=== PATIENT | female | born 1960 | race African-American/Black ===

== ENCOUNTER 2018-01-11 10:18 | Emergency (ER) | payer SELFPAY ==
[~2018-01-11] VITALS: Ht 160 cm; Wt 82.3 kg
[2018-01-11] MEDS ORDERED: IBUPROFEN 800MG TABLET PO ONE (13:45)
[2018-01-11 15:00] VITALS: BP 172/71
== END 2018-01-11 15:01 | disposition home or self-care (01) ==
LOC: ER 10:38
DX: S90.31XA Contusion of right foot, initial encounter (principal); I10 Essential (primary) hypertension; F32.9 Major depressive disorder, single episode, unspecified; E11.9 Type 2 diabetes mellitus without complications; Z88.8 Allergy status to other drugs, medicaments and biological substances; W01.0XXA Fall on same level from slipping, tripping and stumbling without subsequent striking against object, initial encounter; Y93.89 Activity, other specified; Y92.89 Other specified places as the place of occurrence of the external cause
CPT/HCPCS: 73030; 73610; 73630; 99284

== ENCOUNTER 2018-11-25 11:10 | Inpatient (IN) | payer MEDICARE ==
[~2018-11-25] VITALS: Ht 160 cm; Wt 83.9 kg
[2018-11-25] MEDS ORDERED: SODIUM CHLORIDE 0.9% 1,000 ML IV ONE (11:46)
[2018-11-25] MEDS ORDERED: ONDANSETRON HCL 4MG/2ML INJ IV STA (11:46)
[2018-11-25] MEDS ORDERED: ACETAMINOPHEN 325MG TABLET PO ONE (12:00)
[2018-11-25 12:09] LABS: BG BASE EXCESS -1.8 mmol/L (-2.0-2.0); BG CARBOXYHEMOGLOBIN 0.2 % (0.5-1.5); BG DEOXYHEMOGLOBIN 4.3 % (0.0-5.0); BG HCO3 ACT 22.5 mmol/L (22.0-26.0); BG METHEMOGLOBIN 0.1 % (0.0-1.5); BG OXYGEN SATURATION 95.7 % (92.0-98.5); BG OXYHEMOGLOBIN 95.4 % (94.0-97.0); BG PCO2 37.1 mmHg (35.0-45.0); BG PH 7.401 (7.350-7.450); BG PO2 82.8 mmHg (75.0-100.0); BG SAMPLE SITE RIGHT BRACHIAL; BG TOTAL HEMOGLOBIN 13.9 g/dL (12.0-18.0); BG VENT MODE ROOM AIR
[2018-11-25 12:17] LABS: BASOPHILS % 0.6 % (0.0-2.0); CHLORIDE 98 mEq/L (98-107); EOSINOPHILS % 0.9 % (0.0-5.0); HEMATOCRIT. 39.3 % (36.0-48.0); HEMOGLOBIN. 13.4 g/dL (12.0-16.0); LYMPHOCYTES % 27.4 % (20.0-50.0); MEAN CORPUSCULAR HEMOGLOBIN 29.9 pg (28.0-32.0); MEAN CORPUSCULAR VOLUME 87.5 fL (81.0-99.0); MEAN PLATELET VOLUME 9.4 fl (7.4-10.4); MONOCYTES % 6.8 % (2.0-8.0); NEUTROPHILS % 64.3 % (40.0-76.0); PLATELET 295 x1000/uL (130-400); RED BLOOD CELL COUNT 4.49 mill/uL (4.2-5.4); RED CELL DISTRIBUTION WIDTH 12.4 % (11.6-14.6)
[2018-11-25 14:08] LABS: CLARITY URINE CLEAR (CLEAR); COLOR URINE YELLOW (YELLOW); KETONES URINE NEGATIVE (NEGATIVE); LEUKOCYTE ESTERASE URINE NEGATIVE (NEGATIVE); NITRITE URINE NEGATIVE (NEGATIVE); OCCULT BLOOD URINE NEGATIVE (NEGATIVE); PROTEIN URINE NEGATIVE (NEGATIVE); UROBILINOGEN URINE 0.2 E.U./dL (0.2-1.0)
[2018-11-25] MEDS ORDERED: ASPIRIN 325MG EC TABLET PO ONE (16:00)
[2018-11-25 17:25] VITALS: BP 137/77
[2018-11-25] MEDS ORDERED: METF-815 PO (18:07)
[2018-11-25] MEDS ORDERED: RANI150T7 PO (18:07)
[2018-11-25] MEDS ORDERED: GLIM4TAB2 PO (18:07)
[2018-11-25] MEDS ORDERED: TRIA1TAB92 MT (18:07)
[2018-11-25] MEDS ORDERED: CLONIDINE 0.1MG TABLET PO PRN (18:15)
[2018-11-25] MEDS ORDERED: ONDANSETRON HCL 4MG/2ML INJ IV PRN (18:15)
[2018-11-25] MEDS ORDERED: GUAIFENESIN 200MG/10ML SUGAR FREE UDC PO PRN (18:15)
[2018-11-25] MEDS ORDERED: IPRATROPIUM/ALBUTEROL 0.5-3(2.5)MG/3ML NEB INH PRN (18:15)
[2018-11-25] MEDS ORDERED: DOCUSATE SODIUM 100MG CAPSULE PO PRN (18:15)
[2018-11-25] MEDS ORDERED: MAGNESIUM/ALUMINUM HYDROXIDE/SIMETHICONE 30ML UDC PO PRN (18:15)
[2018-11-25] MEDS ORDERED: ACETAMINOPHEN 325MG TABLET PO PRN (18:15)
[2018-11-25] MEDS ORDERED: DEXTROSE 50% WATER 50ML SYRINGE IV PRN (18:30)
[2018-11-25] MEDS ORDERED: MORPHINE SULFATE 2 MG/ML CPJ (NOT FOR IM USE) IV PRN (18:39)
[2018-11-25] MEDS: INSULIN LISPRO 100 UNITS/ML SUBCUT SCH ×2 (18:59→21:16)
[2018-11-25] MEDS: BLOOD SUGAR DIAGNOSTIC STRIP TEST SCH ×2 (18:59→21:04)
[2018-11-25 20:00] VITALS: BP 119/40
[2018-11-25] MEDS ORDERED: ENOXAPARIN 40MG/0.4ML SYR SUBCUT SCH (20:00)
[2018-11-26] VITALS: BP 141/66
[2018-11-26] MEDS: HYDROCODONE/ACETAMINOPHEN 5/325MG TABLET PO PRN ×2 (00:07→15:53)
[2018-11-26 00:10] LABS: CREATINE KINASE 75 IU/L (26-192)
[2018-11-26 01:18] LABS: *AMPHETAMINES SCREEN URINE NEGATIVE (NEGATIVE); *BARBITURATES SCREEN URINE NEGATIVE (NEGATIVE); *COCAINE SCREEN URINE NEGATIVE (NEGATIVE)
[2018-11-26 01:19] LABS: *BENZODIAZEPINES SCREEN URINE NEGATIVE (NEGATIVE); CANNABINOID URINE SCREEN NEGATIVE (NEGATIVE); METHADONE URINE SCREEN NEGATIVE (NEGATIVE); OPIATES URINE SCREEN NEGATIVE (NEGATIVE); PHENCYCLIDINE URINE SCREEN NEGATIVE (NEGATIVE)
[2018-11-26 04:00] VITALS: BP 123/51
[2018-11-26] MEDS: BLOOD SUGAR DIAGNOSTIC STRIP TEST SCH ×4 (06:10→20:51)
[2018-11-26 07:05] LABS: BASOPHILS % 1.2 % (0.0-2.0); EOSINOPHILS % 1.3 % (0.0-5.0); HEMATOCRIT. 34.9 % (36.0-48.0); HEMOGLOBIN. 12.1 g/dL (12.0-16.0); LYMPHOCYTES % 42.2 % (20.0-50.0); MEAN CORPUSCULAR HEMOGLOBIN 30.2 pg (28.0-32.0); MEAN CORPUSCULAR VOLUME 87.4 fL (81.0-99.0); MEAN PLATELET VOLUME 9.3 fl (7.4-10.4); MONOCYTES % 7.7 % (2.0-8.0); NEUTROPHILS % 47.6 % (40.0-76.0); PLATELET 238 x1000/uL (130-400); RED CELL DISTRIBUTION WIDTH 12.2 % (11.6-14.6)
[2018-11-26 07:20] LABS: CHLORIDE 102 mEq/L (98-107)
[2018-11-26 07:32] LABS: CREATINE KINASE 66 IU/L (26-192)
[2018-11-26 08:00] VITALS: BP 123/57
[2018-11-26] MEDS: ASPIRIN 81MG EC TABLET PO SCH (09:24)
[2018-11-26] MEDS: INSULIN LISPRO 100 UNITS/ML SUBCUT SCH ×4 (09:33→21:15)
[2018-11-26 12:00] VITALS: BP 115/52
[2018-11-26 16:00] VITALS: BP 145/76
[2018-11-26 20:00] VITALS: BP 127/61
[2018-11-26] MEDS: ENOXAPARIN 30MG/0.3ML SYR SUBCUT SCH (20:51)
[2018-11-27] VITALS: BP 115/54
[2018-11-27 04:00] VITALS: BP 106/54
[2018-11-27 06:15] LABS: BASOPHILS % 0.9 % (0.0-2.0); EOSINOPHILS % 1.2 % (0.0-5.0); HEMATOCRIT. 33.9 % (36.0-48.0); HEMOGLOBIN. 11.9 g/dL (12.0-16.0); LYMPHOCYTES % 39.3 % (20.0-50.0); MEAN CORPUSCULAR HEMOGLOBIN 30.9 pg (28.0-32.0); MEAN CORPUSCULAR VOLUME 88.2 fL (81.0-99.0); MEAN PLATELET VOLUME 9.4 fl (7.4-10.4); MONOCYTES % 8.6 % (2.0-8.0); PLATELET 239 x1000/uL (130-400); RED BLOOD CELL COUNT 3.84 mill/uL (4.2-5.4); RED CELL DISTRIBUTION WIDTH 12.3 % (11.6-14.6)
[2018-11-27 06:20] LABS: CHLORIDE 104 mEq/L (98-107)
[2018-11-27] MEDS: BLOOD SUGAR DIAGNOSTIC STRIP TEST SCH ×4 (06:21→21:00)
[2018-11-27] MEDS: HYDROCODONE/ACETAMINOPHEN 5/325MG TABLET PO PRN (06:30)
[2018-11-27 06:32] LABS: CREATINE KINASE 63 IU/L (26-192); CREATINE KINASE MB FRACTION < 1.0 ng/mL (0.5-3.6)
[2018-11-27 06:35] LABS: LDL CHOLESTEROL 163 mg/dL (5-100)
[2018-11-27 06:36] LABS: HDL CHOLESTEROL 28 mg/dL (40-59)
[2018-11-27 08:00] VITALS: BP 115/56
[2018-11-27] MEDS: ASPIRIN 81MG EC TABLET PO SCH (08:48)
[2018-11-27] MEDS: ENOXAPARIN 30MG/0.3ML SYR SUBCUT SCH ×2 (08:49→20:43)
[2018-11-27] MEDS: INSULIN LISPRO 100 UNITS/ML SUBCUT SCH ×4 (08:51→20:44)
[2018-11-27 10:43] VITALS: BP 118/60
[2018-11-27 12:00] VITALS: BP 149/62
[2018-11-27] MEDS: EZETIMIBE 10MG TABLET PO SCH (12:29)
[2018-11-27 16:00] VITALS: BP 122/46
[2018-11-27] MEDS ORDERED: ATORVASTATIN CALCIUM 40MG TABLET PO SCH (21:00)
[2018-11-28] VITALS: BP 148/103
[2018-11-28 04:00] VITALS: BP 131/55
[2018-11-28 05:31] LABS: CHLORIDE 105 mEq/L (98-107)
[2018-11-28 06:09] LABS: EOSINOPHILS % 1.1 % (0.0-5.0); HEMATOCRIT. 34.5 % (36.0-48.0); HEMOGLOBIN. 11.9 g/dL (12.0-16.0); LYMPHOCYTES % 40.2 % (20.0-50.0); MEAN CORPUSCULAR HEMOGLOBIN 30.4 pg (28.0-32.0); MEAN CORPUSCULAR VOLUME 88.2 fL (81.0-99.0); MEAN PLATELET VOLUME 9.6 fl (7.4-10.4); MONOCYTES % 8.6 % (2.0-8.0); NEUTROPHILS % 49.1 % (40.0-76.0); PLATELET 241 x1000/uL (130-400); RED CELL DISTRIBUTION WIDTH 12.5 % (11.6-14.6)
[2018-11-28] MEDS: BLOOD SUGAR DIAGNOSTIC STRIP TEST SCH ×4 (07:40→21:12)
[2018-11-28 08:00] VITALS: BP 149/59
[2018-11-28] MEDS: EZETIMIBE 10MG TABLET PO SCH (08:58)
[2018-11-28] MEDS: ASPIRIN 81MG EC TABLET PO SCH (08:58)
[2018-11-28] MEDS: INSULIN LISPRO 100 UNITS/ML SUBCUT SCH ×4 (08:59→20:50)
[2018-11-28] MEDS: ENOXAPARIN 30MG/0.3ML SYR SUBCUT SCH (09:00)
[2018-11-28 12:00] VITALS: BP 139/54
[2018-11-28 16:00] VITALS: BP 132/62
[2018-11-28 20:00] VITALS: BP 165/69
[2018-11-29] VITALS: BP 91/61
[2018-11-29 04:00] VITALS: BP 123/56
[2018-11-29] MEDS: BLOOD SUGAR DIAGNOSTIC STRIP TEST SCH ×2 (07:42→12:40)
[2018-11-29 08:00] VITALS: BP 132/54
[2018-11-29] MEDS: INSULIN LISPRO 100 UNITS/ML SUBCUT SCH ×2 (08:03→14:00)
[2018-11-29] MEDS: ASPIRIN 81MG EC TABLET PO SCH (08:03)
[2018-11-29] MEDS: EZETIMIBE 10MG TABLET PO SCH (08:03)
[2018-11-29] MEDS ORDERED: ENOXAPARIN 40MG/0.4ML SYR SUBCUT SCH (09:00)
[2018-11-29] MEDS ORDERED: REGADENOSON 0.4 MG/5 ML IV NR (11:45)
[2018-11-29 11:58] VITALS: BP 151/69
[2018-11-29] MEDS ORDERED: REGADENOSON 0.4 MG/5 ML IV ONE (12:42)
[2018-11-29 16:00] VITALS: BP 150/75
== END 2018-11-29 17:41 | disposition home or self-care (01) | DRG 206 ==
LOC: ER 11:10 → 7WST 15:57 → EDBEDREQ 16:00 → EDBEDREQTM 16:04 → ENRESERV 16:45
PROVIDERS: ADMIT Hospitalist; ATTEND Hospitalist
DX: M94.0 Chondrocostal junction syndrome [Tietze] (principal); E11.65 Type 2 diabetes mellitus with hyperglycemia; E11.40 Type 2 diabetes mellitus with diabetic neuropathy, unspecified; E78.5 Hyperlipidemia, unspecified; I10 Essential (primary) hypertension; M54.30 Sciatica, unspecified side; E78.00 Pure hypercholesterolemia, unspecified; Z79.4 Long term (current) use of insulin; Z82.49 Family history of ischemic heart disease and other diseases of the circulatory system; I25.10 Atherosclerotic heart disease of native coronary artery without angina pectoris
CPT/HCPCS: 36415; 36600; 71045; 78452; 80048; 80061; 80305; 82375; 82550; 82553; 82805; 82962; 83605; 83735; 83880; 84484; 85379; 93005; 93017; 93306; 93970; 96361; 96374; 97162; 97166; 99285; A9500; J1650; J1815; J2405; J2785; J7030